=== PATIENT | male | born 1960 | race African-American/Black ===

== ENCOUNTER 2025-08-13 06:27 | Inpatient (IN) | payer MEDICARE, OTHER ==
[~2025-08-13] VITALS: Ht 182.9 cm; Wt 160.5 kg
[~2025-08-13 06:27] MED LIST: ALLO-97 PO; ATOR10TA PO; CARV-165 PO; FURO20TA5 PO; GABA-1201 PO; HYDR-4062 PO; IBUP-1493 PO; INSLAN SQ; METF-1211 PO; OMEG1CAP6 PO; RIVA20TA PO
[2025-08-13] MEDS ORDERED: NITROGLYCERIN 50 MG/D5% WATER 250 ML IV PRN (06:30)
[2025-08-13] MEDS ORDERED: NITROGLYCERIN 50 MG/D5% WATER 250 ML ONE (06:34)
[2025-08-13] MEDS: FUROSEMIDE 40 MG/4 ML VIAL IVP ONE (06:41)
[2025-08-13 06:42] VITALS: PULSE 105; RESP 28; O2SAT 98
[2025-08-13] MEDS: ALBUTEROL SULFATE 2.5 MG/0.5 ML NEB SOLUTION NEB ONE (06:42)
[2025-08-13] MEDS: IPRATROPIUM BROMIDE 0.5 MG/2.5 ML NEB SOLUTION NEB ONE (06:42)
[2025-08-13 06:56] VITALS: PULSE 107; RESP 26; O2SAT 100
[2025-08-13] MEDS: AZITHROMYCIN 500 MG/NS 250 ML IV ONE (07:02)
[2025-08-13] MEDS: PIPERACILLIN/TAZO 3.375 GM/D5W 50 ML IV ONE (07:02)
[2025-08-13 07:03] LABS: PLATELET COUNT (AUTO) 179 K/uL (150-450); RED BLOOD CELL COUNT(AUTO) 5.00 MIL/uL (4.50-5.90); RED CELL DISTRIBUTION WIDTH 17.0 % (11.5-14.5); WHITE BLOOD COUNT (AUTO) 6.2 K/uL (4.5-11.0)
[2025-08-13 07:03] LABS: COVID AG,FIA SOURCE NASAL SWAB
[2025-08-13 07:04] LABS: CALCIUM, TOTAL 9.1 mg/dL (8.8-10.5); CREATININE 0.92 mg/dL (0.60-1.30); GLOMERULAR FILTR. RATE CALC > 60 mL/min (>60); GLUCOSE,RANDOM 240 mg/dL (70-110); SODIUM SERUM 142 mmol/L (136-145); UREA NITROGEN, BLOOD 15 mg/dL (7-18)
[2025-08-13 07:08] LABS: ASPARTATE AMINOTRANSFERASE 17.0 U/L (15-37)
[2025-08-13 07:09] LABS: TOTAL PROTEIN, SERUM 7.4 g/dL (6.4-8.2)
[2025-08-13 07:10] LABS: TROPONIN I-HIGH SENSITIVITY 21 ng/L (<76)
[2025-08-13 07:18] LABS: APPEARANCE,URINE CLEAR (CLEAR); GLUCOSE, URINE (UA) 150-200 mg/dL (NEGATIVE); LEUKOCYTE ESTERASE ,URINE NEGATIVE (NEGATIVE); NITRATE,URINE NEGATIVE (NEGATIVE); OCCULT BLOOD,URINE SMALL (NEGATIVE); PH,URINE DRUG SCREEN 6.5 (5.0-8.0); SPECIFIC GRAVITIY, URINE 1.012 (1.003-1.030)
[2025-08-13 07:25] LABS: SARS-COV2 (COVID) ANTIGEN,FIA Negative (Negative)
[2025-08-13 07:27] LABS: ALCOHOL, URINE DRUG SCREEN NEGATIVE (NEGATIVE); AMPHET/METH SCREEN,URINE NEGATIVE (NEGATIVE); BARBITURATE SCREEN, URINE NEGATIVE (NEGATIVE); CANNABINOID SCREEN,URINE NEGATIVE (NEGATIVE); COCAINE SCREEN,URINE NEGATIVE (NEGATIVE); INFLUENZA TYPE A NEGATIVE FOR TYPE A (NEGATIVE); INFLUENZA TYPE B NEGATIVE FOR TYPE B (NEGATIVE); METHADONE SCREEN, URINE NEGATIVE (NEGATIVE)
[2025-08-13 07:49] LABS: SULFOSALICYLIC ACID,URINE 2+ (Negative)
[2025-08-13] MEDS: VANCOMYCIN 1.25 GM/WATER(PEG) 250 ML IV ONE (08:20)
[2025-08-13] MEDS ORDERED: ACETAMINOPHEN 325 MG TABLET PO PRN (08:30)
[2025-08-13] MEDS ORDERED: ONDANSETRON HCL 4 MG/2 ML VIAL IVP PRN (08:30)
[2025-08-13] MEDS ORDERED: ALBUTEROL SULFATE 2.5 MG/0.5 ML NEB SOLUTION NEB PRN (08:30)
[2025-08-13] MEDS: DOCUSATE SODIUM 100 MG CAPSULE PO SCH (08:38)
[2025-08-13] MEDS: FAMOTIDINE 20 MG TABLET PO SCH (08:38)
[2025-08-13 12:00] VITALS: BP 141/79; PULSE 70; RESP 16; TEMP 98.1; O2SAT 99
[2025-08-13] MEDS ORDERED: HYDROCODONE/ACETAMINOPHEN 5-325 MG TABLET PO PRN (13:00)
[2025-08-13] MEDS ORDERED: SODIUM CHLORIDE 0.9% 250 ML IV ONE (13:25)
[2025-08-13] MEDS: PIPERACILLIN/TAZO 3.375 GM/D5W 50 ML IV SCH (13:37)
[2025-08-13 16:00] VITALS: BP 131/91; PULSE 75; RESP 18; TEMP 97.8; O2SAT 98
[2025-08-13] MEDS ORDERED: HEPARIN SODIUM,PORCINE 5,000 UNITS/ML VIAL SQ SCH (16:00)
[2025-08-13] MEDS: GABAPENTIN 400 MG CAPSULE PO SCH (17:38)
[2025-08-13] MEDS: RIVAROXABAN 20 MG TABLET PO SCH (17:38)
[2025-08-13 20:00] VITALS: BP 135/72; PULSE 64; RESP 18; TEMP 98.4; O2SAT 97
[2025-08-13] MEDS: VANCOMYCIN 1.5 GM/WATER(PEG) 300 ML IV SCH (20:49)
[2025-08-13] MEDS: CHLORHEXIDINE GLUCONATE 2% TOWELETTE [2'S/6'S] TP SCH (21:09)
[2025-08-13] MEDS ORDERED: DEXTROSE 50%-WATER 25 GM/50 ML SYRINGE IVP PRN (21:15)
[2025-08-13] MEDS: INSULIN LISPRO 100 UNITS/ML SQ PRN (21:34)
[2025-08-13 21:41] LABS: GLUCOMETER DEV NAME(LOC) ICUN.7; GLUCOSE,POINT OF CARE 252 MG/DL (70-110)
[2025-08-13 22:50] VITALS: PULSE 69; RESP 24; O2SAT 97
[2025-08-14] VITALS (13 sets, daily range): BP systolic 114–147; BP diastolic 69–91; PULSE 64–87; RESP 16–22; TEMP 96.8–99; O2SAT 94–98
[2025-08-14 06:12] LABS: PLATELET COUNT (AUTO) 160 K/uL (150-450); RED BLOOD CELL COUNT(AUTO) 4.45 MIL/uL (4.50-5.90); RED CELL DISTRIBUTION WIDTH 16.8 % (11.5-14.5); WHITE BLOOD COUNT (AUTO) 11.9 K/uL (4.5-11.0)
[2025-08-14 06:30] LABS: GLUCOMETER DEV NAME(LOC) ICU.S7; GLUCOSE,POINT OF CARE 173 MG/DL (70-110)
[2025-08-14 06:31] LABS: CALCIUM, TOTAL 8.9 mg/dL (8.8-10.5); CREATININE 1.19 mg/dL (0.60-1.30); GLOMERULAR FILTR. RATE CALC > 60 mL/min (>60); GLUCOSE,RANDOM 197 mg/dL (70-110); SODIUM SERUM 139 mmol/L (136-145); TROPONIN I-HIGH SENSITIVITY 19 ng/L (<76); UREA NITROGEN, BLOOD 15 mg/dL (7-18)
[2025-08-14] MEDS: FUROSEMIDE 20 MG/2 ML VIAL IVP SCH (08:18)
[2025-08-14] MEDS: LOSARTAN POTASSIUM 25 MG TABLET PO SCH (08:19)
[2025-08-14] MEDS ORDERED: FUROSEMIDE 20 MG/2 ML VIAL IVP SCH (09:00)
[2025-08-14 13:41] LABS: GLUCOMETER DEV NAME(LOC) ICUN.7; GLUCOSE,POINT OF CARE 235 MG/DL (70-110)
[2025-08-14] MEDS: VANCOMYCIN 1.25 GM/WATER(PEG) 250 ML IV SCH (14:11)
[2025-08-14] MEDS ORDERED: SODIUM CHLORIDE 0.9% 500 ML IV ONE (17:23)
[2025-08-14 20:07] LABS: GLUCOSE,POINT OF CARE 133 MG/DL (70-110)
[2025-08-15] VITALS (8 sets, daily range): BP systolic 114–124; BP diastolic 68–91; PULSE 60–91; RESP 18–19; TEMP 97.5–98.2; O2SAT 95–99
[2025-08-15 06:34] LABS: RED BLOOD CELL COUNT(AUTO) 4.99 MIL/uL (4.50-5.90); RED CELL DISTRIBUTION WIDTH 17.4 % (11.5-14.5); WHITE BLOOD COUNT (AUTO) 6.9 K/uL (4.5-11.0)
[2025-08-15 06:43] LABS: CALCIUM, TOTAL 8.9 mg/dL (8.8-10.5); CREATININE 1.27 mg/dL (0.60-1.30); GLOMERULAR FILTR. RATE CALC > 60 mL/min (>60); GLUCOSE,RANDOM 136 mg/dL (70-110); SODIUM SERUM 138 mmol/L (136-145); UREA NITROGEN, BLOOD 20 mg/dL (7-18)
[2025-08-15 07:02] LABS: PLATELET COUNT (AUTO) 142 K/uL (150-450)
[2025-08-15] MEDS: EMPAGLIFLOZIN 10 MG TABLET PO SCH (09:00)
[2025-08-15] MEDS: SPIRONOLACTONE 25 MG TABLET PO SCH (09:10)
[2025-08-15 12:30] LABS: GLUCOMETER DEV NAME(LOC) 5N.1D; GLUCOSE,POINT OF CARE 146 MG/DL (70-110)
[2025-08-15 12:30] LABS: GLUCOMETER DEV NAME(LOC) 5N.1D; GLUCOSE,POINT OF CARE 157 MG/DL (70-110)
[2025-08-15 12:50] LABS: GLUCOSE,POINT OF CARE 189 MG/DL (70-110)
[2025-08-15 17:56] LABS: GLUCOSE,POINT OF CARE 128 MG/DL (70-110)
[2025-08-15] MEDS: FUROSEMIDE 20 MG TABLET PO SCH (20:02)
[2025-08-16 01:00] VITALS: PULSE 71; RESP 28; O2SAT 97
[2025-08-16 04:00] VITALS: BP 137/103; PULSE 82; RESP 18; TEMP 97.5; O2SAT 92
[2025-08-16 07:09] LABS: CREATININE 0.97 mg/dL (0.60-1.30); GLUCOSE,RANDOM 127 mg/dL (70-110); SODIUM SERUM 141 mmol/L (136-145); UREA NITROGEN, BLOOD 20 mg/dL (7-18)
[2025-08-16 07:10] LABS: CALCIUM, TOTAL 8.4 mg/dL (8.8-10.5); GLOMERULAR FILTR. RATE CALC > 60 mL/min (>60)
[2025-08-16 07:34] VITALS: BP 122/87; PULSE 87; RESP 18; TEMP 97.7; O2SAT 98
[2025-08-16] MEDS ORDERED: EMPA10TA3 PO (11:04)
[2025-08-16] MEDS ORDERED: FURO20TA5 PO (11:04)
[2025-08-16] MEDS ORDERED: SPIR-37 PO (11:05)
[2025-08-16] MEDS ORDERED: LOSA-381 PO (11:06)
[2025-08-16 12:35] VITALS: BP 103/79; PULSE 65; RESP 18; TEMP 97.9; O2SAT 96
[2025-08-16 14:16] LABS: GLUCOSE,POINT OF CARE 187 MG/DL (70-110)
[2025-08-16 14:16] LABS: GLUCOSE,POINT OF CARE 130 MG/DL (70-110)
[2025-08-16 14:16] LABS: GLUCOMETER DEV NAME(LOC) 5N.1D; GLUCOSE,POINT OF CARE 164 MG/DL (70-110)
[2025-08-16 15:27] VITALS: BP 124/75; PULSE 68; RESP 18; TEMP 98.1; O2SAT 98
[2025-08-16] MEDS ORDERED: VANCOMYCIN 1GM/WATER(PEG/NADA) 200 ML IV SCH (20:00)
== END 2025-08-16 16:00 | disposition home or self-care (01) | DRG 291 ==
LOC: EMS 06:27 → EDH 08:22 → ICU 10:53 → 5S 08-14 16:38
PROVIDERS: ADMIT Internal Medicine; ATTEND Internal Medicine
PROC: 5A09357 Assistance with Respiratory Ventilation, Less than 24 Consecutive Hours, Continuous Positive Airway Pressure (ICD-10-PCS; principal; 2025-08-13)
PROC: 5A09357 Assistance with Respiratory Ventilation, Less than 24 Consecutive Hours, Continuous Positive Airway Pressure (ICD-10-PCS; 2025-08-14)
PROC: 5A09357 Assistance with Respiratory Ventilation, Less than 24 Consecutive Hours, Continuous Positive Airway Pressure (ICD-10-PCS; 2025-08-15)
PROC: 5A09357 Assistance with Respiratory Ventilation, Less than 24 Consecutive Hours, Continuous Positive Airway Pressure (ICD-10-PCS; 2025-08-16)
DX: I11.0 Hypertensive heart disease with heart failure (principal); I50.23 Acute on chronic systolic (congestive) heart failure; J96.21 Acute and chronic respiratory failure with hypoxia; E44.0 Moderate protein-calorie malnutrition; I48.19 Other persistent atrial fibrillation; Z79.01 Long term (current) use of anticoagulants; E11.9 Type 2 diabetes mellitus without complications; E66.01 Morbid (severe) obesity due to excess calories; Z68.42 Body mass index [BMI] 45.0-49.9, adult; I42.8 Other cardiomyopathies; G47.33 Obstructive sleep apnea (adult) (pediatric); E78.00 Pure hypercholesterolemia, unspecified; I25.10 Atherosclerotic heart disease of native coronary artery without angina pectoris; G47.30 Sleep apnea, unspecified; G62.9 Polyneuropathy, unspecified; M10.9 Gout, unspecified; I49.3 Ventricular premature depolarization; Z79.4 Long term (current) use of insulin; Z82.49 Family history of ischemic heart disease and other diseases of the circulatory system; Z83.3 Family history of diabetes mellitus; Z90.49 Acquired absence of other specified parts of digestive tract; Z91.148 Patient's other noncompliance with medication regimen for other reason; Z95.810 Presence of automatic (implantable) cardiac defibrillator; Z79.899 Other long term (current) drug therapy
CPT/HCPCS: 71045; 80048; 80076; 80202; 80307; 81001; 81002; 82962; 83735; 83880; 84484; 85025; 85610; 85730; 87081; 87804; 93005; 93306; 94640; 94660; 96365; 96366; 96368; 96375; 97116; 97162; 99291; J0456; J1938; J2543; J2919; J3490; J7040; J7050; 36415-L1; 36415-TC; J7613